=== PATIENT | male | born 1955 | race Caucasian/White ===

== ENCOUNTER 2016-09-06 14:07 | Emergency (ER) | payer MEDICARE, OTHER ==
[~2016-09-06] VITALS: Ht 193 cm; Wt 89.5 kg
[~2016-09-06 14:07] MED LIST: ASPI-825 PO; DIVA500T35 PO; DOCU-174 PO; ISOS10TA2 PO; LEVO150 PO; LISI10TA7 PO; LITH300T4 PO; METO25 PO; PANT40TA25 PO; QUET200T PO; SIMV-260 PO
[2016-09-06 14:13] VITALS: BP 146/91
[2016-09-06] MEDS ORDERED: MOM30 PO (14:45)
[2016-09-06] MEDS ORDERED: ACETAMINOPHEN 325 MG TABLET PO ONE (14:45)
[2016-09-06] MEDS ORDERED: BISA5TAB12 PO (14:45)
[2016-09-06] MEDS ORDERED: RANO500T3 PO (14:45)
[2016-09-06] MEDS ORDERED: ACET-784 PO (14:45)
[2016-09-06] MEDS ORDERED: OS500 PO (14:45)
[2016-09-06] MEDS ORDERED: FE RC (14:45)
[2016-09-06] MEDS ORDERED: ALLO100T PO (14:45)
[2016-09-06 14:53] LABS: BASOPHILS # (AUTO) 0.03 K/uL (0.00-0.20); BASOPHILS % (AUTO) 0.5 % (0.0-2.0); EOSINOPHILS # (AUTO) 0.19 K/uL (0.00-0.70); EOSINOPHILS % (AUTO) 2.76 % (1.0-6.0); HEMATOCRIT 42.3 % (41-53); LYMPHOCYTES # (AUTO) 1.3 K/uL (1.0-4.8); LYMPHOCYTES % (AUTO) 19.5 % (22.0-44.0); MEAN CORPUSCULAR HEMOGLOBIN 29.4 pg (26.0-34.0); MEAN CORPUSCULAR VOLUME 89 fL (80-100); MONOCYTES # (AUTO) 0.6 K/uL (0.1-1.0); MONOCYTES % (AUTO) 9.3 % (2.0-9.0); NEUTROPHILS # (AUTO) 4.6 K/uL (1.8-7.7); NEUTROPHILS % (AUTO) 67.9 % (40.0-70.0); PLATELET COUNT (AUTO) 249 K/uL (150-450); RED BLOOD CELL COUNT(AUTO) 4.75 MIL/uL (4.50-5.90); RED CELL DISTRIBUTION WIDTH 13.6 % (11.5-14.5); WHITE BLOOD COUNT (AUTO) 6.8 K/uL (4.5-11.0)
[2016-09-06 15:03] LABS: ANION GAP 10 mmol/L (8-16); CARBON DIOXIDE 29 mmol/L (22-29); CHLORIDE 103 mmol/L (98-107); CREATININE 0.95 mg/dL (0.60-1.30); GLOMERULAR FILTR. RATE CALC > 60 mL/min (>60); POTASSIUM 3.2 mmol/L (3.5-5.1); SODIUM SERUM 142 mmol/L (136-145); UREA NITROGEN, BLOOD 8 mg/dL (7-18)
[2016-09-06 15:08] LABS: ALANINE AMINOTRANSFERASE 20 U/L (12-78); ALBUMIN 3.7 g/dL (3.4-5.0); ASPARTATE AMINOTRANSFERASE 17 U/L (15-37); BILIRUBIN,TOTAL 0.4 mg/dL (0.1-1.0); TOTAL PROTEIN, SERUM 7.2 g/dL (6.4-8.2)
[2016-09-06 15:16] LABS: LITHIUM < 0.20 mmol/L (0.60-1.20)
[2016-09-06 15:20] LABS: VALPROIC ACID < 3 mcg/mL (50-100)
[2016-09-06] MEDS ORDERED: QUEtiapine FUMARATE 100 MG TABLET PO ONE (16:30)
[2016-09-06] MEDS ORDERED: HALOPERIDOL DECANOATE 50 MG/ML VIAL IM ONE (16:45)
== END 2016-09-06 18:09 | disposition home or self-care (01) ==
LOC: EMS 14:09
DX: F25.9 Schizoaffective disorder, unspecified (principal); S00.91XA Abrasion of unspecified part of head, initial encounter; S10.91XA Abrasion of unspecified part of neck, initial encounter; S40.212A Abrasion of left shoulder, initial encounter; S70.211A Abrasion, right hip, initial encounter; I10 Essential (primary) hypertension; I25.10 Atherosclerotic heart disease of native coronary artery without angina pectoris; E78.00 Pure hypercholesterolemia, unspecified; Z88.0 Allergy status to penicillin; Z88.8 Allergy status to other drugs, medicaments and biological substances; Z88.1 Allergy status to other antibiotic agents; X58.XXXA Exposure to other specified factors, initial encounter; Y93.89 Activity, other specified; Y92.89 Other specified places as the place of occurrence of the external cause; Y99.8 Other external cause status
CPT/HCPCS: 36415; 70450; 72125; 73030; 73502; 80053; 80164; 80178; 85025; 96372; 99285; G0480; J1631